=== PATIENT | female | born 1985 | race Caucasian/White ===

== ENCOUNTER 2020-03-21 20:40 | Emergency (ER) | payer OTHER ==
[~2020-03-21] VITALS: Ht 157.5 cm; Wt 49.9 kg
[2020-03-21 20:42] VITALS: Ht 157.5 cm; Wt 49.9 kg
[2020-03-21 22:19] VITALS: BP 122/75
== END 2020-03-21 22:20 | disposition home or self-care (01) ==
LOC: ED 20:40
DX: S61.012A Laceration without foreign body of left thumb without damage to nail, initial encounter (principal); W26.9XXA Contact with unspecified sharp object(s), initial encounter; Y93.89 Activity, other specified; Y92.89 Other specified places as the place of occurrence of the external cause; Y99.8 Other external cause status
CPT/HCPCS: 90715; J2001